=== PATIENT | female | born 1960 | race Caucasian/White ===

== ENCOUNTER 2018-10-21 19:10 | Emergency (ER) | payer OTHER ==
[~2018-10-21] VITALS: Ht 170.2 cm; Wt 95.5 kg
[~2018-10-21 19:10] MED LIST: BUTA-259 PO; DIAZ10TA2 PO; ESCI10TA PO; ESTR0.6261 PO; GABA-530 PO; HYDR-3686 PO; MECL12.584 PO; META-25 PO; NITR0.4T48 SL; OLME1TAB24 PO; PER5325T PO; PROC-8 PO; PROM25TA14 PO; RABE20TA18 PO; THYR30TA21 PO; TRAZ-251 PO
[2018-10-21] MEDS ORDERED: normal saline 1000ML IV soln IVB ONE (19:35)
[2018-10-21] MEDS ORDERED: ondansetron/PF 4mg/2ml inj IV ONE (19:35)
[2018-10-21] MEDS ORDERED: morphine 4 MG/ML inj SYRINge IV PRN (19:35)
[2018-10-21] MEDS ORDERED: CefTRIAXone 2gm/D5W 50ml 50 ML IV ONE (19:35)
[2018-10-21 20:13] LABS: PARTIAL THROMBOPLASTIN TIME 29 SECONDS (22-32)
[2018-10-21 20:15] LABS: BASOPHILS % (AUTO) 0.3 % (0-1); EOSINOPHILS % (AUTO) 0.1 % (0-6); HEMATOCRIT 39.6 % (35.0-45.0); LYMPHOCYTES # (AUTO) 0.6 X10'3 (1.1-4.8); LYMPHOCYTES % (AUTO) 6.3 % (21-51); MEAN CORPUSCULAR VOLUME 81.8 FL (78-98); MEAN PLATELET VOLUME 9.1 FL (7.4-10.4); MONOCYTES # (AUTO) 0.5 X10'3 (0-0.9); MONOCYTES % (AUTO) 5.6 % (2-12); NEUTROPHILS # (AUTO) 8.4 X10'3 (1.8-7.7); NEUTROPHILS % (AUTO) 87.7 % (42-75); PLATELET COUNT 306 X10'3 (140-440); RED BLOOD COUNT 4.84 X10'6 (4.20-5.60); WHITE BLOOD COUNT 9.5 X10'3 (4.5-11.0)
--- NOTE | 2018-10-21 20:23 | NUR ---
PT MOVED FROM BED 6 IN MAIN ED TO BED 23 IN ED OVERFLOW, ACCOMPANIED BY RN.
[2018-10-21 20:27] LABS: ALANINE AMINOTRANSFERASE 60 U/L (12-78); ALBUMIN 3.2 G/DL (3.4-5.0); ALBUMIN/GLOBULIN RATIO 0.8 (1.1-1.5); ALKALINE PHOSPHATASE 82 IU/L (46-116); ANION GAP 16 (8-16); ASPARTATE AMINO TRANSFERASE 64 U/L (10-37); BILIRUBIN,TOTAL 0.3 MG/DL (0.1-1.0); BLOOD UREA NITROGEN 24 MG/DL (7-18); BUN/CREATININE RATIO 24.7 (6.6-38.0); CALCIUM 8.6 MG/DL (8.5-10.1); CHLORIDE 99 MMOL/L (99-107); CREATININE 0.97 MG/DL (0.40-0.90); GLUCOSE 127 MG/DL (70-104); POTASSIUM 3.3 MMOL/L (3.5-5.1); SODIUM 134 MMOL/L (135-145); TOTAL CARBON DIOXIDE 19.2 MMOL/L (24-32); TOTAL PROTEIN 7.2 G/DL (6.4-8.2); eGFR 59 ML/MIN
[2018-10-21] MEDS ORDERED: LORazepam 2 mg/ml vial IV ONE ×2 (20:35→21:05)
[2018-10-21 20:48] LABS: CLARITY,URINE CLEAR (Clear); GLUCOSE, URINE NEGATIVE (Neg); KETONES,URINE NEGATIVE (Neg); LEUKOCYTE ESTERASE ,URINE NEGATIVE (Neg); NITRITES, URINE NEGATIVE (Neg); OCCULT BLOOD,URINE TRACE-INTACT (Neg); PROTEIN,URINE TRACE mg/dl (Neg); UROBILINOGEN,URINE 0.2 E.U/dL (0.2-1.0)
[2018-10-21 20:56] LABS: COLOR,URINE YELLOW (Yellow); UA COLLECTION TYPE CLN CATCH MIDSTREAM
[2018-10-21] MEDS ORDERED: normal saline 1000ML IV soln IV ONE (21:00)
[2018-10-21 21:02] LABS: BACTERIA,URINE FEW /HPF (Neg); MUCUS STRANDS MODERATE /LPF (Neg); RBC,URINE 0-2 /HPF (0-2); SQUAMOUS EPITHELIAL CELL,UR MODERATE /LPF (FEW); WBC,URINE 0-4 /HPF (0-4)
[2018-10-21 21:03] LABS: TRANSITIONAL EPI CELLS,URINE FEW /HPF
[2018-10-21] MEDS ORDERED: POTASSIUM BICARB 20meq eff tab 20 MEQ TABLET.EFF PO ONE (21:15)
--- NOTE | 2018-10-21 21:19 | NUR ---
2ND CALL FOR DR. BELLO AT 21:20
--- NOTE | 2018-10-21 21:28 | NUR ---
[facility]ANSOOR DOCTOR CALLED BACK AT 21:28, DR. DENNISON TOOK CALL
[2018-10-21] MEDS ORDERED: ketorolac tromethamine 15mg/ml inj. IV ONE (21:35)
[2018-10-21] MEDS ORDERED: ONDA4TAB6 PO (21:37)
[2018-10-21 22:32] VITALS: BP 119/63
== END 2018-10-21 23:10 | disposition home or self-care (01) ==
LOC: ER 19:10
DX: E86.0 Dehydration (principal); E50.9 Vitamin A deficiency, unspecified; G43.909 Migraine, unspecified, not intractable, without status migrainosus; I25.10 Atherosclerotic heart disease of native coronary artery without angina pectoris; I10 Essential (primary) hypertension; G89.29 Other chronic pain; F32.9 Major depressive disorder, single episode, unspecified; C50.919 Malignant neoplasm of unspecified site of unspecified female breast; Z90.49 Acquired absence of other specified parts of digestive tract; Z90.710 Acquired absence of both cervix and uterus; Z98.890 Other specified postprocedural states; Z95.1 Presence of aortocoronary bypass graft; Z88.6 Allergy status to analgesic agent; Z88.0 Allergy status to penicillin; Z88.8 Allergy status to other drugs, medicaments and biological substances; Z79.2 Long term (current) use of antibiotics; Z79.899 Other long term (current) drug therapy
CPT/HCPCS: 36415; 71045; 80053; 81001; 83605; 84145; 84484; 85025; 85610; 85730; 87040; 93005; 96365; 96366; 96367; 96375; 99284; J0696; J1885; J2060; J2270; J2405; J3370; J7030

== ENCOUNTER 2019-03-22 12:30 | Emergency (ER) | payer OTHER ==
[~2019-03-22] VITALS: Ht 170.2 cm; Wt 95.5 kg
[~2019-03-22 12:30] MED LIST changes: +ONDA4TAB6 PO
[2019-03-22 13:17] LABS: BASOPHILS # (AUTO) 0.1 X10'3 (0-0.2); EOSINOPHILS # (AUTO) 0.1 X10'3 (0-0.9); HEMOGLOBIN 12.9 g/dl (12.0-16.0); LYMPHOCYTES # (AUTO) 2.9 X10'3 (1.1-4.8); MEAN PLATELET VOLUME 8.5 FL (7.4-10.4); MONOCYTES # (AUTO) 0.6 X10'3 (0-0.9); WHITE BLOOD COUNT 9.5 X10'3 (4.5-11.0)
[2019-03-22 13:18] LABS: BASOPHILS % (AUTO) 0.9 % (0-1); EOSINOPHILS % (AUTO) 0.9 % (0-6); HEMATOCRIT 38.2 % (35.0-45.0); LYMPHOCYTES % (AUTO) 30.2 % (21-51); MEAN CORPUSCULAR HEMOGLOBIN 26.9 PG (27.0-31.0); MEAN CORPUSCULAR HGB CONC 33.7 g/dL (33.0-36.5); MEAN CORPUSCULAR VOLUME 79.9 FL (78-98); MONOCYTES % (AUTO) 6.2 % (2-12); NEUTROPHILS # (AUTO) 5.9 X10'3 (1.8-7.7); NEUTROPHILS % (AUTO) 61.8 % (42-75); PLATELET COUNT 361 X10'3 (140-440); RED BLOOD COUNT 4.78 X10'6 (4.20-5.60); RED CELL DISTRIBUTION WIDTH 14.2 % (11.5-14.5)
[2019-03-22 13:36] LABS: ALBUMIN 3.6 G/DL (3.4-5.0); ALBUMIN/GLOBULIN RATIO 0.9 (1.1-1.5); ALKALINE PHOSPHATASE 86 IU/L (46-116); ANION GAP 10 (8-16); ASPARTATE AMINO TRANSFERASE 17 U/L (10-37); BILIRUBIN,TOTAL 0.3 MG/DL (0.1-1.0); BLOOD UREA NITROGEN 15 MG/DL (7-18); BUN/CREATININE RATIO 16.3 (6.6-38.0); CALCIUM 9.1 MG/DL (8.5-10.1); CHLORIDE 99 MMOL/L (99-107); CREATININE 0.92 MG/DL (0.40-0.90); GLUCOSE 116 MG/DL (70-104); POTASSIUM 3.4 MMOL/L (3.5-5.1); SODIUM 136 MMOL/L (135-145); TOTAL CARBON DIOXIDE 27.1 MMOL/L (24-32); TOTAL PROTEIN 7.6 G/DL (6.4-8.2); eGFR 62 ML/MIN
[2019-03-22 13:38] LABS: ALANINE AMINOTRANSFERASE 25 U/L (12-78)
[2019-03-22 14:22] LABS: LARGE PLATELETS FEW; MICROCYTOSIS 1+; PLATELET ESTIMATE NORMAL
[2019-03-22] MEDS ORDERED: LORazepam 2 mg/ml vial IV ONE (14:50)
[2019-03-22] MEDS ORDERED: iohexol 350MG/ML 100ml bottle IV ONE (14:54)
[2019-03-22 17:13] VITALS: BP 148/80
== END 2019-03-22 17:16 | disposition home or self-care (01) ==
LOC: ER 12:31
DX: R06.02 Shortness of breath (principal); R07.89 Other chest pain; R06.4 Hyperventilation; I25.10 Atherosclerotic heart disease of native coronary artery without angina pectoris; I10 Essential (primary) hypertension; G89.29 Other chronic pain; F32.9 Major depressive disorder, single episode, unspecified; Z90.49 Acquired absence of other specified parts of digestive tract; Z90.710 Acquired absence of both cervix and uterus; Z98.890 Other specified postprocedural states; Z85.3 Personal history of malignant neoplasm of breast; Z88.5 Allergy status to narcotic agent; Z88.0 Allergy status to penicillin; Z88.8 Allergy status to other drugs, medicaments and biological substances; Z88.2 Allergy status to sulfonamides; Z79.899 Other long term (current) drug therapy
CPT/HCPCS: 36415; 71045; 71275; 80053; 84484; 85025; 93005; 93306; 96374; 99284; J2060; Q9967

== ENCOUNTER 2019-11-03 09:03 | Emergency (ER) | payer OTHER ==
[~2019-11-03] VITALS: Ht 170.2 cm; Wt 97.7 kg
[~2019-11-03 09:03] MED LIST changes: +MECL-183 PO; -MECL12.584 PO
[2019-11-03 09:41] LABS: BASOPHILS # (AUTO) 0.1 X10'3 (0-0.2); BASOPHILS % (AUTO) 0.7 % (0-1); EOSINOPHILS # (AUTO) 0.2 X10'3 (0-0.9); EOSINOPHILS % (AUTO) 2.1 % (0-6); HEMATOCRIT 34.4 % (35.0-45.0); HEMOGLOBIN 11.3 g/dl (12.0-16.0); LYMPHOCYTES # (AUTO) 2.8 X10'3 (1.1-4.8); MEAN CORPUSCULAR HEMOGLOBIN 26.2 PG (27.0-31.0); MEAN CORPUSCULAR HGB CONC 32.8 g/dL (33.0-36.5); MEAN CORPUSCULAR VOLUME 79.8 FL (78-98); MEAN PLATELET VOLUME 8.4 FL (7.4-10.4); MONOCYTES # (AUTO) 0.9 X10'3 (0-0.9); MONOCYTES % (AUTO) 7.7 % (2-12); NEUTROPHILS # (AUTO) 7.3 X10'3 (1.8-7.7); NEUTROPHILS % (AUTO) 64.5 % (42-75); PLATELET COUNT 262 X10'3 (140-440); RED BLOOD COUNT 4.32 X10'6 (4.20-5.60); RED CELL DISTRIBUTION WIDTH 15.2 % (11.5-14.5); WHITE BLOOD COUNT 11.3 X10'3 (4.5-11.0)
[2019-11-03] MEDS ORDERED: morphine 2 MG/ML inj. syringe IV ONE (09:45)
[2019-11-03] MEDS ORDERED: metoclopramide 5 mg/ml inj IV ONE (09:45)
[2019-11-03 09:47] LABS: URINE HCG NEGATIVE (NEG)
[2019-11-03 09:48] LABS: CLARITY,URINE CLEAR (Clear); COLOR,URINE YELLOW (Yellow); GLUCOSE, URINE NEGATIVE (Neg); KETONES,URINE NEGATIVE (Neg); LEUKOCYTE ESTERASE ,URINE NEGATIVE (Neg); NITRITES, URINE NEGATIVE (Neg); OCCULT BLOOD,URINE NEGATIVE (Neg); PROTEIN,URINE NEGATIVE (Neg); UROBILINOGEN,URINE 0.2 E.U/dL (0.2-1.0)
[2019-11-03 09:49] LABS: UA COLLECTION TYPE CLN CATCH MIDSTREAM
[2019-11-03 10:00] LABS: ALANINE AMINOTRANSFERASE 19 U/L (12-78); ALBUMIN 2.8 G/DL (3.4-5.0); ALBUMIN/GLOBULIN RATIO 0.7 (1.1-1.5); ALKALINE PHOSPHATASE 81 IU/L (46-116); ANION GAP 9 (8-16); ASPARTATE AMINO TRANSFERASE 11 U/L (10-37); BILIRUBIN,TOTAL 0.3 MG/DL (0.1-1.0); BLOOD UREA NITROGEN 11 MG/DL (7-18); BUN/CREATININE RATIO 12.9 (6.6-38.0); CALCIUM 8.1 MG/DL (8.5-10.1); CHLORIDE 104 MMOL/L (99-107); CREATININE 0.85 MG/DL (0.40-0.90); GLUCOSE 168 MG/DL (70-104); LIPASE 146 U/L (73-393); POTASSIUM 3.3 MMOL/L (3.5-5.1); SODIUM 138 MMOL/L (135-145); TOTAL CARBON DIOXIDE 25.5 MMOL/L (24-32); TOTAL PROTEIN 6.6 G/DL (6.4-8.2); eGFR 68 ML/MIN
[2019-11-03] MEDS ORDERED: iohexol 300mg/ml 100ml inj. ONE (10:07)
--- NOTE | 2019-11-03 10:16 | NUR ---
NOTIFIED DR REESE THAT PT STATED THAT SHE GET ITCHINESS WITH ALL PAIN MEDS SHE USUALLY TAKE ATARAX AND ATIVIAN , PER MD HE WILL ORDER BENADRYL ,WILL FOLLOW THE ORDERS.
[2019-11-03] MEDS ORDERED: diphenhydrAMINE 50 mg/ml inj IV ONE (10:20)
--- NOTE | 2019-11-03 11:51 | NUR ---
pt appear sleeping at this time.no distress noted will cont to monitor.
[2019-11-03] MEDS ORDERED: METO-292 PO (12:37)
[2019-11-03 12:46] VITALS: BP 131/167
== END 2019-11-03 12:45 | disposition home or self-care (01) ==
LOC: ER 09:04
DX: R10.13 Epigastric pain (principal); R20.2 Paresthesia of skin; G43.909 Migraine, unspecified, not intractable, without status migrainosus; I25.10 Atherosclerotic heart disease of native coronary artery without angina pectoris; I10 Essential (primary) hypertension; G89.29 Other chronic pain; F32.9 Major depressive disorder, single episode, unspecified; Z85.3 Personal history of malignant neoplasm of breast; Z90.49 Acquired absence of other specified parts of digestive tract; Z90.710 Acquired absence of both cervix and uterus; Z98.890 Other specified postprocedural states; Z88.0 Allergy status to penicillin; Z88.2 Allergy status to sulfonamides; Z88.8 Allergy status to other drugs, medicaments and biological substances; Z79.899 Other long term (current) drug therapy
CPT/HCPCS: 36415; 74177; 80053; 81003; 81025; 83690; 85025; 93005; 96374; 96375; 99285; J1200; J2270; J2765; Q9967

== ENCOUNTER → 2020-08-12 | Emergency (ER) | payer OTHER ==
[~2020-08-12] VITALS: Ht 170.2 cm; Wt 95.5 kg
[~2020-08-12] MED LIST changes: -MECL-183 PO; +MECL-226 PO; +METO-292 PO; +aspirin 81mg tab.chew PO ONE
[2020-08-12 19:09] LABS: BASOPHILS # (AUTO) 0.1 X10'3 (0-0.2); BASOPHILS % (AUTO) 1.1 % (0-1); EOSINOPHILS # (AUTO) 0.2 X10'3 (0-0.9); EOSINOPHILS % (AUTO) 1.5 % (0-6); HEMATOCRIT 35.3 % (35.0-45.0); HEMOGLOBIN 11.6 g/dl (12.0-16.0); LYMPHOCYTES # (AUTO) 3.3 X10'3 (1.1-4.8); LYMPHOCYTES % (AUTO) 25.7 % (21-51); MEAN CORPUSCULAR HEMOGLOBIN 27.3 PG (27.0-31.0); MEAN CORPUSCULAR HGB CONC 32.8 g/dL (33.0-36.5); MEAN CORPUSCULAR VOLUME 83.3 FL (78-98); MONOCYTES # (AUTO) 0.8 X10'3 (0-0.9); NEUTROPHILS # (AUTO) 8.5 X10'3 (1.8-7.7); NEUTROPHILS % (AUTO) 65.7 % (42-75); PLATELET COUNT 324 X10'3 (140-440); RED BLOOD COUNT 4.24 X10'6 (4.20-5.60); RED CELL DISTRIBUTION WIDTH 14.7 % (11.5-14.5); WHITE BLOOD COUNT 12.9 X10'3 (4.5-11.0)
[2020-08-12 19:24] LABS: ALANINE AMINOTRANSFERASE 18 U/L (12-78); ALBUMIN 2.8 G/DL (3.4-5.0); ALBUMIN/GLOBULIN RATIO 0.7 (1.1-1.5); ALKALINE PHOSPHATASE 107 IU/L (46-116); ANION GAP 8 (8-16); ASPARTATE AMINO TRANSFERASE 12 U/L (10-37); BILIRUBIN,TOTAL 0.1 MG/DL (0.1-1.0); BLOOD UREA NITROGEN 17 MG/DL (7-18); BUN/CREATININE RATIO 23.3 (6.6-38.0); CALCIUM 8.7 MG/DL (8.5-10.1); CHLORIDE 104 MMOL/L (99-107); CREATININE 0.73 MG/DL (0.40-0.90); GLUCOSE 94 MG/DL (70-104); POTASSIUM 3.8 MMOL/L (3.5-5.1); SODIUM 139 MMOL/L (135-145); TOTAL CARBON DIOXIDE 27.2 MMOL/L (24-32); TOTAL PROTEIN 6.9 G/DL (6.4-8.2); eGFR 81 ML/MIN
[2020-08-12 19:31] LABS: MAGNESIUM 1.6 MG/DL (1.5-2.4)
[2020-08-12 20:15] LABS: CLARITY,URINE CLEAR (Clear); COLOR,URINE YELLOW (Yellow); GLUCOSE, URINE NEGATIVE (Neg); KETONES,URINE NEGATIVE (Neg); LEUKOCYTE ESTERASE ,URINE NEGATIVE (Neg); NITRITES, URINE NEGATIVE (Neg); OCCULT BLOOD,URINE NEGATIVE (Neg); PROTEIN,URINE NEGATIVE (Neg); UROBILINOGEN,URINE 0.2 E.U/dL (0.2-1.0)
[2020-08-12 20:29] LABS: UA COLLECTION TYPE OTHER
--- NOTE | 2020-08-12 20:49 | NUR ---
pt resting laying on her left side, respirations even and unlabored. no distress noted at this time./
[2020-08-12 22:01] VITALS: BP 132/70
== END | disposition home or self-care (01) ==
LOC: ER 18:28
DX: R07.89 Other chest pain (principal); R53.1 Weakness; R11.0 Nausea; G43.909 Migraine, unspecified, not intractable, without status migrainosus; I25.10 Atherosclerotic heart disease of native coronary artery without angina pectoris; I10 Essential (primary) hypertension; G89.29 Other chronic pain; F32.9 Major depressive disorder, single episode, unspecified; Z90.49 Acquired absence of other specified parts of digestive tract; Z90.710 Acquired absence of both cervix and uterus; Z98.890 Other specified postprocedural states; Z95.1 Presence of aortocoronary bypass graft; Z85.3 Personal history of malignant neoplasm of breast; Z88.0 Allergy status to penicillin; Z88.2 Allergy status to sulfonamides; Z88.5 Allergy status to narcotic agent; Z88.8 Allergy status to other drugs, medicaments and biological substances; Z79.899 Other long term (current) drug therapy
CPT/HCPCS: 36415; 71045; 80053; 81003; 82948; 83735; 83880; 84484; 85025; 93005; 99285

== ENCOUNTER 2021-02-10 06:06 | Day surgery (SDC) | payer OTHER ==
[2021-02-03 17:00] LABS: PRE OP INR 1.1 INR; PRE OP PROTIME 11.2 SECONDS (9.0-12.0)
[2021-02-03 17:02] LABS: ALBUMIN 3.3 G/DL (3.4-5.0); ALBUMIN/GLOBULIN RATIO 0.7 (1.1-1.5); ALKALINE PHOSPHATASE 102 IU/L (46-116); BLOOD UREA NITROGEN 13 MG/DL (7-18); BUN/CREATININE RATIO 17.8 (6.6-38.0); CALCIUM 8.8 MG/DL (8.5-10.1); CHLORIDE 101 MMOL/L (99-107); CREATININE 0.73 MG/DL (0.40-0.90); PRE OP ALT 14 U/L (30-65); PRE OP ANION GAP 12 (8-16); PRE OP AST 18 U/L (10-37); PRE OP BILIRUB, TOTAL 0.2 MG/DL (0.0-1.0); PRE OP GLUCOSE 89 MG/DL (70-104); PRE OP POTASSIUM 3.9 MMOL/L (3.4-5.1); PRE OP SODIUM 139 MMOL/L (135-145); TOTAL CARBON DIOXIDE 26.1 MMOL/L (24-32); TOTAL PROTEIN 7.8 G/DL (6.4-8.2); eGFR 81 ML/MIN
[2021-02-03 17:06] LABS: BASOPHILS % (AUTO) 0.4 % (0-1); EOSINOPHILS # (AUTO) 0.1 X10'3 (0-0.9); EOSINOPHILS % (AUTO) 1.2 % (0-6); LYMPHOCYTES % (AUTO) 27.1 % (21-51); MEAN CORPUSCULAR HEMOGLOBIN 26.6 PG (27.0-31.0); MEAN CORPUSCULAR HGB CONC 32.9 g/dL (33.0-36.5); MEAN CORPUSCULAR VOLUME 80.9 FL (78-98); MEAN PLATELET VOLUME 8.4 FL (7.4-10.4); MONOCYTES # (AUTO) 0.6 X10'3 (0-0.9); MONOCYTES % (AUTO) 5.8 % (2-12); NEUTROPHILS # (AUTO) 7.2 X10'3 (1.8-7.7); NEUTROPHILS % (AUTO) 65.5 % (42-75); PRE OP HEMATOCRIT 37.3 % (35.0-45.0); PRE OP HEMOGLOBIN 12.3 g/dL (12.0-16.0); PRE OP PLATELET COUNT 381 X10'3 (140-440); RED BLOOD COUNT 4.61 X10'6 (4.20-5.60); RED CELL DISTRIBUTION WIDTH 15.3 % (11.5-14.5)
[2021-02-10] VITALS (13 sets, daily range): BP systolic 127–165; BP diastolic 70–89
[~2021-02-10] VITALS: Ht 170.2 cm; Wt 96.0 kg
[~2021-02-10 06:06] MED LIST changes: +BACL-11 PO; +BIOTIN; +CELE-193 PO; -DIAZ10TA2 PO; +DIAZ5TAB4 PO; -GABA-530 PO; +GABA600T13 PO; +KETO60VI28 IM; -MECL-226 PO; -META-25 PO; -METO-292 PO; -ONDA4TAB6 PO; -PER5325T PO; -PROC-8 PO; +TELM40TA2 PO; +VERA240T PO; +VIT D3; +ZOLP5TAB2 PO; +[UNRECOGNIZED DRUG - OTHER]; -aspirin 81mg tab.chew PO ONE; +diazepam 5mg tablet PO ONE; +famotidine 20mg tablet PO ONE; +oxymetazoline 15 ML nasal spray NS ONE; +ringers solution, lacted 1,000 ML IV SCH
[2021-02-10] MEDS ORDERED: cocaine 4% topical solution 4ml bottle ONE (06:39)
[2021-02-10] MEDS ORDERED: mupirocin 2% ointment 22GM ONE (06:39)
[2021-02-10] MEDS ORDERED: methylPREDNISolone acetate 80mg/ml inj**IM only ONE (06:39)
[2021-02-10] MEDS ORDERED: LIDOCAINE 1%/EPI 1:100,000 inj. 10 ML multi-dose vial ONE (06:39)
[2021-02-10] MEDS ORDERED: oxymetazoline 15 ML nasal spray NS ONE (06:39)
[2021-02-10] MEDS ORDERED: fentaNYL/PF 50MCG/1 ML 2ML syringe ONE (07:59)
[2021-02-10] MEDS ORDERED: midazolam 1 mg/ML 2ml injection ONE (07:59)
[2021-02-10] MEDS ORDERED: propofol inj 20 ML IV ONE (08:00)
[2021-02-10] MEDS ORDERED: ondansetron/PF 4mg/2ml inj ONE (08:02)
[2021-02-10] MEDS ORDERED: dexamethasone sod phosphate 4mg/ml inj. ONE (08:02)
[2021-02-10] MEDS ORDERED: meperidine/PF 25mg/ml syringe IV PRN ×3 (08:45)
[2021-02-10] MEDS ORDERED: proCHLORperazine 10 MG/2 ml inj IV PRN (08:45)
[2021-02-10] MEDS ORDERED: ringers solution, lacted 1,000 ML IV SCH (08:45)
[2021-02-10] MEDS ORDERED: labetalol 20mg/4ml (5mg/ml) syringe IV PRN (08:45)
[2021-02-10] MEDS ORDERED: ondansetron/PF 4mg/2ml inj IV PRN (08:45)
--- NOTE | 2021-02-10 09:50 | NUR ---
PT ARRIVED TO RECOVERY VIA GURNEY ACCOMPANIED BY DR. SANTIAGO-REPORT GIVEN, PT AWAKING UP, DENIES PAIN, VSS, COTTONOIDS TO BILAT NARES-SOME BLEEDING NOTED, ERIN DRSG APPLIED TO ASSIST WITH DRAINAGE, PIV 20G TO RIGHT A/C, SCDS ON.
[2021-02-10] MEDS ORDERED: oxymetazoline 15 ML nasal spray NS PRN (10:05)
[2021-02-10] MEDS ORDERED: salt irrigation nasal spray 45 ML SPRAY NS PRN (10:10)
[2021-02-10] MEDS ORDERED: HYDROcodone/acetaminophen 5mg/325mg tablet PO ONE (11:10)
--- NOTE | 2021-02-10 11:50 | NUR ---
PT AWAKE, VSS, PAIN TOLERABLE WITH PRESSURE IN FRONT OF FACE-MUSTACHE DRESSING IN PLACE WITH SOME DRAINAGE, GIVEN 1 NORCO FOR PAIN, PT SHOWN AND EDUCATED ON D/C INSTRUCTIONS FOR HOME CARE-ALL QUESTIONS ANSWERED SENT WITH ALL NECESSARY ITEMS FOR HOME CARE , PIV D/CD-CANULA INTACT, PT ABLE TO DRESS SELF WITH SOME ASSISTANCE, TAKEN VIA W/C WITH ALL BELONGINGS TO AND VEHICLE
[2021-02-10] MEDS ORDERED: mupirocin 2% nasal ointment 1gm UD NS SCH (13:00)
== END 2021-02-10 11:50 | disposition home or self-care (01) ==
LOC: PAS 06:06
PROVIDERS: ATTEND Otolaryngology
DX: J34.2 Deviated nasal septum (principal); J34.3 Hypertrophy of nasal turbinates; J32.8 Other chronic sinusitis; I10 Essential (primary) hypertension; F41.9 Anxiety disorder, unspecified; F32.9 Major depressive disorder, single episode, unspecified; K21.9 Gastro-esophageal reflux disease without esophagitis; E03.9 Hypothyroidism, unspecified; G89.29 Other chronic pain; G43.909 Migraine, unspecified, not intractable, without status migrainosus; E66.9 Obesity, unspecified; Z68.33 Body mass index [BMI] 33.0-33.9, adult; Z79.01 Long term (current) use of anticoagulants; Z79.899 Other long term (current) drug therapy; Z90.710 Acquired absence of both cervix and uterus; Z90.49 Acquired absence of other specified parts of digestive tract; Z98.890 Other specified postprocedural states; Z88.0 Allergy status to penicillin; Z88.2 Allergy status to sulfonamides; Z88.8 Allergy status to other drugs, medicaments and biological substances; Z20.822 Contact with and (suspected) exposure to COVID-19
CPT/HCPCS: 30140; 30520; 31254; 31267; 36415; 61782; 80053; 82948; 85025; 85576; 85610; 85730; 87635; A6402; C9250; C9803; J1040; J1100; J2175; J2250; J2405; J2704; J3010; J7040; J7120; U0003; U0005; Z7506; Z7508; Z7512; A4618; A7000

== ENCOUNTER 2021-02-18 13:09 | Outpatient (CLI) | payer OTHER ==
[~2021-02-18 13:09] MED LIST changes: -NITR0.4T48 SL; -OLME1TAB24 PO; -diazepam 5mg tablet PO ONE; -famotidine 20mg tablet PO ONE; +iohexol 300 MG/1 ML 10ml vial ONE; +iohexol 300 MG/1 ML 50ml polymer ONE; -oxymetazoline 15 ML nasal spray NS ONE; -ringers solution, lacted 1,000 ML IV SCH
== END 2021-02-18 23:59 | disposition home or self-care (01) ==
LOC: RAD 13:09 → EDSTATUS 14:00 → RAD 23:59
PROVIDERS: ATTEND Orthopaedic Surgery
DX: M25.511 Pain in right shoulder (principal)
CPT/HCPCS: 73201; Q9967

== ENCOUNTER 2021-08-04 11:19 | Day surgery (SDC) | payer OTHER ==
[~2021-08-04] VITALS: Ht 170.2 cm; Wt 98.9 kg
[2021-08-04] VITALS (8 sets, daily range): BP systolic 123–145; BP diastolic 60–85
[~2021-08-04 11:19] MED LIST changes: -iohexol 300 MG/1 ML 10ml vial ONE; -iohexol 300 MG/1 ML 50ml polymer ONE
[2021-08-04] MEDS ORDERED: LORazepam 0.5 MG tablet PO PRN (12:05)
[2021-08-04] MEDS ORDERED: diphenhydrAMINE 25mg capsule PO PRN (12:05)
[2021-08-04] MEDS ORDERED: normal saline 1,000 ML IV SCH (12:05)
[2021-08-04] MEDS ORDERED: NITR0.4T48 SL (12:07)
[2021-08-04] MEDS ORDERED: HYDR-3964 PO (12:08)
[2021-08-04 12:37] LABS: BASOPHILS # (AUTO) 0.1 X10'3 (0-0.2); BASOPHILS % (AUTO) 1.2 % (0-1); EOSINOPHILS # (AUTO) 0.1 X10'3 (0-0.9); EOSINOPHILS % (AUTO) 0.9 % (0-6); HEMATOCRIT 35.2 % (35.0-45.0); HEMOGLOBIN 11.3 g/dl (12.0-16.0); LYMPHOCYTES % (AUTO) 26.1 % (21-51); MEAN CORPUSCULAR VOLUME 78.2 FL (78-98); MEAN PLATELET VOLUME 8.4 FL (7.4-10.4); MONOCYTES # (AUTO) 0.8 X10'3 (0-0.9); NEUTROPHILS # (AUTO) 7.5 X10'3 (1.8-7.7); NEUTROPHILS % (AUTO) 64.8 % (42-75); PLATELET COUNT 347 X10'3 (140-440); RED CELL DISTRIBUTION WIDTH 16.4 % (11.5-14.5); WHITE BLOOD COUNT 11.6 X10'3 (4.5-11.0)
[2021-08-04 12:41] LABS: ALBUMIN 2.8 G/DL (3.4-5.0); ANION GAP 9 (8-16); BLOOD UREA NITROGEN 21 MG/DL (7-18); BUN/CREATININE RATIO 27.6 (6.6-38.0); CHLORIDE 104 MMOL/L (99-107); CREATININE 0.76 MG/DL (0.40-0.90); GLUCOSE 91 MG/DL (70-104); POTASSIUM 4.1 MMOL/L (3.5-5.1); SODIUM 138 MMOL/L (135-145); TOTAL CARBON DIOXIDE 24.6 MMOL/L (24-32); eGFR 77 ML/MIN
[2021-08-04 12:44] LABS: APTT 27 SECONDS (22-32)
[2021-08-04] MEDS ORDERED: nitroGLYCERIN-Tridil 50MG/D5W 250 ML IV ONE (14:40)
[2021-08-04] MEDS ORDERED: fentaNYL/PF 50MCG/1 ML 2ML syringe ONE (14:40)
[2021-08-04] MEDS ORDERED: LIDOCAINE 1% w/preservative (10 MG/ML) inj. 10mL VIAL ONE (14:40)
[2021-08-04] MEDS ORDERED: heparin 1,000unit/ml 10ml vial 10 ML ONE (14:40)
[2021-08-04] MEDS ORDERED: midazolam 1 mg/ML 2ml injection ONE (14:40)
[2021-08-04] MEDS ORDERED: verapamil 2.5 mg/ml inj IV ONE (14:40)
[2021-08-04] MEDS ORDERED: iohexol 350MG/ML 100ml bottle IV ONE (14:40)
[2021-08-04] MEDS ORDERED: HYDROcodone/acetaminophen 5mg/325mg tablet PO PRN (18:30)
[2021-08-04] MEDS ORDERED: HYDROcodone/acetaminophen 10/325mg tab PO PRN (18:30)
== END 2021-08-04 19:33 | disposition home or self-care (01) ==
LOC: SSTAY O 11:19
PROVIDERS: ATTEND Internal Medicine Interventional Cardiology
DX: R94.39 Abnormal result of other cardiovascular function study (principal); R07.89 Other chest pain; I25.10 Atherosclerotic heart disease of native coronary artery without angina pectoris; I12.9 Hypertensive chronic kidney disease with stage 1 through stage 4 chronic kidney disease, or unspecified chronic kidney disease; N18.9 Chronic kidney disease, unspecified; G47.33 Obstructive sleep apnea (adult) (pediatric); E03.9 Hypothyroidism, unspecified; I45.10 Unspecified right bundle-branch block; E78.5 Hyperlipidemia, unspecified; Z79.899 Other long term (current) drug therapy
CPT/HCPCS: 36415; 80048; 85025; 85610; 85730; 93005; 93458; 99152; C1769; C1894; J1644; J2250; J3010; J3490; J7030; Q0163; Q9967; A4620; A5120; A6258